=== PATIENT | male | born 1990 | race African-American/Black ===

== ENCOUNTER 2019-01-02 05:35 | Inpatient (IN) | payer SELFPAY ==
[~2019-01-02] VITALS: Ht 170.2 cm; Wt 52.6 kg
--- OUTSIDE RECORDS SUMMARY | 2019-01-02 05:37 | XMS REPORT ---
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 Allergies, Adverse Reactions, Alerts Allergy Name Allergy Type Status Severity Reaction(s) Onset Date Inactive Date Treating Clinician Comments No Known Allergies DA Active U 2018-05-25 00:00:00 No Known Allergies DA Active U 2016-11-08 00:00:00 Medications This patient has no known medications. Encounters Start Date/Time End Date/Time Encounter Type Admission Type Attending Clinicians Care Facility Care Department Encounter ID 2017-08-15 00:00:00 2017-08-15 00:00:00 Outpatient [facility] [id number] 2017-04-20 00:00:00 2017-04-20 00:00:00 Outpatient [facility] [id number] 2017-04-03 00:00:00 2017-04-03 00:00:00 Outpatient [facility] [id number] 2017-01-17 00:00:00 2017-01-17 00:00:00 Outpatient [facility] [id number] 2016-12-08 00:00:00 2016-12-08 00:00:00 Outpatient [facility] [id number] 2016-11-30 12:32:49 2016-11-30 12:32:49 Outpatient [facility] [id number] 2016-11-30 00:00:00 2016-11-30 00:00:00 Outpatient [facility] [id number] 2016-11-25 00:00:00 2016-11-25 00:00:00 Outpatient [facility] [id number] 2016-11-10 00:00:00 2016-11-10 00:00:00 Outpatient [facility] [id number] 2016-11-07 11:31:30 2016-11-07 11:31:30 Outpatient [facility] [id number] 2016-11-07 11:16:47 2016-11-07 11:16:47 Outpatient [facility] [id number] 2016-11-01 00:00:00 2016-11-01 00:00:00 Outpatient [facility] [id number] 2016-10-25 00:00:00 2016-10-25 00:00:00 Outpatient [facility] [id number] 2016-08-30 12:10:40 2016-08-30 12:10:40 Outpatient [facility] [id number]
[2019-01-02] MEDS ORDERED: PANTOPRAZOLE 40 MG 10ML VIAL IV STA (05:44)
[2019-01-02] MEDS ORDERED: SODIUM CHLORIDE 0.9% 1000ML 1,000 ML IV STA ×2 (05:44→07:00)
[2019-01-02] MEDS ORDERED: ACETAMINOPHEN 1000 MG/100 ML IV STA (05:44)
[2019-01-02] MEDS ORDERED: ONDANSETRON HCL INJ 2MG/ML 2ML 2 MG/ML VIAL IV STA (05:44)
[2019-01-02] MEDS ORDERED: ACETAMINOPHEN 1000 MG/100 ML 100 ML IV ONE (06:02)
[2019-01-02] MEDS: CEFTRIAXONE SOD 1 GM/NS 50 ML 50 ML IV SCH (06:16)
[2019-01-02] MEDS: AZITHROMYCIN 500MG/NS 250 ML 250 ML IV SCH (06:26)
--- NOTE | 2019-01-02 06:27 | NUR ---
PT GIVEN URINAL, INST ON NEED FOR UA, VERBALIZED UNDERSTANDING
[2019-01-02 06:29] LABS: BASOPHILS # (AUTO) 0.1 (0.0-0.1); BASOPHILS % 0.5 % (0.0-1.0); EOSINOPHILS # (AUTO) 0.1 (0.0-0.4); EOSINOPHILS % 0.3 % (0.0-6.0); HEMATOCRIT 34.8 % (38.2-49.6); HEMOGLOBIN 12.3 g/dL (14.0-18.0); LYMPHOCYTES # (AUTO) 0.5 (1.0-3.2); LYMPHOCYTES % 2.5 % (18.0-39.1); MEAN CORPUSCULAR HEMOGLOBIN 33.2 pg (28-32); MEAN CORPUSCULAR HGB CONC 35.3 g/dL (31-35); MEAN CORPUSCULAR VOLUME 94.1 fL (81-99); MONOCYTES # (AUTO) 0.7 (0.2-0.8); MONOCYTES % 3.6 % (4.4-11.3); NEUTROPHILS # (AUTO) 17.2 (2.1-6.9); NEUTROPHILS % 91.9 % (38.7-80.0); PLATELET COUNT 167 x10e3/uL (140-360); RED CELL DISTRIBUTION WIDTH 12.9 % (11.7-14.4)
[2019-01-02 06:37] LABS: INR 1.07; PROTHROMBIN TIME 14.4 seconds (11.9-14.5)
[2019-01-02 06:38] LABS: PARTIAL THROMBOPLASTIN TIME 31.5 seconds (23.8-35.5)
[2019-01-02 06:59] LABS: ALANINE AMINOTRANSFERASE 12 IU/L (0-55); ALBUMIN 2.5 g/dL (3.5-5.0); ALBUMIN/GLOBULIN RATIO 0.3 (0.8-2.0); ALKALINE PHOSPHATASE 63 IU/L (40-150); ANION GAP 14.9 mmol/L (8-16); BLOOD UREA NITROGEN 36 mg/dL (7-26); BUN/CREATININE RATIO 15 (6-25); CALCIUM 8.4 mg/dL (8.4-10.2); CARBON DIOXIDE 20 mmol/L (22-29); CHLORIDE 97 mmol/L (98-107); CREATINE KINASE 466 IU/L (30-200); CREATININE, SERUM 2.41 mg/dL (0.72-1.25); EST GLOMERULAR FILTRATION RATE 38 ML/MIN (60-); GLUCOSE 121 mg/dL (74-118)
[2019-01-02] MEDS ORDERED: IPRATROPIUM BROMIDE 0.02% 2.5 ML NEB NEB PRN (07:00)
[2019-01-02] MEDS ORDERED: ALBUTEROL SULF 0.083% NEB SOLN 3 ML NEB NEB PRN (07:00)
[2019-01-02 07:07] LABS: POTASSIUM 2.9 mmol/L (3.5-5.1)
[2019-01-02 07:08] LABS: SODIUM 129 mmol/L (136-145)
--- NOTE | 2019-01-02 07:08 | NUR ---
ABNORMAL LAB RESULTS (K, MAG, NA) REPORTED TO DR. ALBERTS
--- NOTE | 2019-01-02 07:10 | Diagnostic Imaging Report ---
Examination: Single AP view of the chest. COMPARISON: None. INDICATION: Shortness of breath, cough and congestion, fever, HIV IMPRESSION: 1. Lines and Tubes: None 2. Lungs are well-inflated. Wedge-shaped consolidation in the lateral left mid lung, likely representing pneumonia given the clinical setting. 3. Cardiomediastinal silhouette is normal. Pulmonary vasculature is normal. 4. No acute bony abnormalities. Signed by: Dr. Naveen Evans M.D. on 01/02/2019 7:07 AM
[2019-01-02] MEDS ORDERED: VANCOMYCIN 1GM/NS 250 ML 250 ML IV ONE (07:15)
[2019-01-02] MEDS ORDERED: MAGNESIUM SULFATE 2GM/50ML 50 ML IV ONE (07:15)
[2019-01-02] MEDS ORDERED: KCL 40MEQ/0.9% SOD CHL 1,000 ML IV ONE (07:40)
[2019-01-02 07:51] LABS: LYMPHOCYTES % (MANUAL) 3 % (19-48); MONOCYTES % (MANUAL) 4 % (3.4-9.0); NEUTROPHILS % (MANUAL) 93 % (40-74); PLATELET ESTIMATE MODERATELY DECREASED
[2019-01-02 07:52] LABS: PLATELET MORPHOLOGY COMMENT FEW LARGE; RBC MORPHOLOGY COMMENT NORMAL
--- NOTE | 2019-01-02 08:43 | NUR ---
RECEIVED REPORT FROM LUIS Mclean TEMPetar 100.1 PATIENT K 2.9, PLACED HIM ON EXECUTIVE PERSONAL ASSISTANT STARTED KCL 40 MEQ/1 LITER @ 250 CC/HR
--- NOTE | 2019-01-02 09:17 | NUR ---
PATIENT EVALUATED BY DR. LEARY AND DR. LEACH IN THE EMERGENCY ROOM.
[2019-01-02 09:26] LABS: BILIRUBIN,URINE NEGATIVE (NEGATIVE); CLARITY,URINE CLOUDY (CLEAR); COLOR,URINE YELLOW (YELLOW); KETONES,URINE NEGATIVE (NEGATIVE); LEUKOCYTE ESTERASE ,URINE NEGATIVE (NEGATIVE); NITRITE,URINE NEGATIVE (NEGATIVE); URINE UROBILINOGEN 0.2 mg/dL (0.2 - 1)
--- NOTE | 2019-01-02 09:30 | NUR ---
DR. LEACH CALLED ON PHONE. SHE ASKED ABOUT THE LOW POTTASIUM AND MAGNESIUM. RELAYED TO HER THAT THEY ARE BEING TREATED BY E.R. DOCTOR AND LET HER KNOW WHAT MEDICATIONS ARE BEING GIVEN. SHE STATED PATIENT IS GOING TO NEED A NEPHROLOGY CONSULT. I ASKED IF SHE WOULD LIKE ME PUT THAT ORDER IN AND SHE STATED, "NO, I WILL DO IT".
[2019-01-02 09:38] LABS: AMPHETAMINES SCREEN,URINE NEGATIVE (NEGATIVE); BENZODIAZEPINES SCREEN,URINE NEGATIVE (NEGATIVE); PHENCYCLIDINE SCREEN,URINE NEGATIVE (NEGATIVE)
[2019-01-02 09:45] LABS: PROTEIN,URINE DIPSTICK 3+ (NEGATIVE)
--- NOTE | 2019-01-02 09:49 | NUR ---
PATIENT AMBULATED TO BATHROOM. BECAME SHORT OF BREATH. 93%, PLACED ON 3L/NC. INCREASED TO 96%. TACHYCARDIC 112, RR 32, PLACED BACK IN BED. TEMP 101
[2019-01-02 09:52] LABS: BACTERIA,URINE RARE /HPF; EPITHELIAL CELLS,URINE FEW /LPF
[2019-01-02] MEDS: ACETAMINOPHEN 1000 MG/100 ML IV PRN (10:38)
--- NOTE | 2019-01-02 10:47 | Diagnostic Imaging Report ---
CT of the chest, with contrast. History: Pneumonia, concern for empyema. Comparison: Chest radiograph from earlier 01/02/2019. Technique: Multidetector CT scanning of the chest was performed from the level of the apices to the upper abdomen after intravenous administration of contrast. Coronal and sagittal multiplanar reformations were obtained. RADIATION DOSE: Total DLP: 265.22 mGy*cm Dose modulation, iterative reconstruction, and/or weight based adjustment of the mA/kV was utilized to reduce the radiation dose to as low as reasonably achievable. Findings: The thyroid and remaining visualized structures within the base of the neck demonstrate no significant abnormalities. The thoracic aorta is normal course and caliber. The heart is not enlarged. No abnormal pericardial fluid is present. Normal-sized mediastinal and axillary lymph nodes are noted. There is mild prominence of left hilar lymph nodes which may be reactive. There is no abnormal axillary or mediastinal lymph node enlargement. The trachea is patent. Mild bilateral paraseptal cystic change noted. There is a large area of consolidation identified involving the left upper lobe and lingula with air bronchograms. Additionally, there are innumerable subcentimeter groundglass opacities identified within the left upper and lower lobes. The right lung is clear. There is no evidence for pneumothorax, significant pleural effusion, or organized fluid collection to suggest empyema. Limited views of the upper abdomen demonstrate no significant abnormalities. The osseous structures demonstrate no evidence for acute fracture or destructive process. The extrathoracic soft tissues are unremarkable. IMPRESSION: 1. Consolidation of the left upper lobe/lingula with additional subcentimeter groundglass opacities identified throughout the left lung. Findings are concerning for a infectious process such as pneumonia. Follow-up examination after treatment is recommended to ensure resolution. 2. No evidence for significant pleural effusion, empyema, or drainable fluid collection. Signed by: Dr. Michele Bahena MD on 01/02/2019 10:43 AM
--- NOTE | 2019-01-02 11:31 | History and Physical ---
HISTORY OF PRESENT ILLNESS: Mr. Duron is a 28-year-old man with history of HIV, who need medication for that, came to the emergency room complaining of few days history of fever, vomiting, diarrhea, as well as he later on developed left-sided chest pain, cough, and phlegm, so he decided to come to the emergency room. PAST MEDICAL HISTORY: He is HIV positive. ALLERGIES: NO KNOWN DRUG ALLERGIES. SOCIAL HISTORY: He does not smoke, but he drinks alcohol. PAST SURGICAL HISTORY: He denies. PHYSICAL EXAMINATION: GENERAL: He is awake and alert. VITAL SIGNS: Temperature is a 100.1, blood pressure 127/82. HEART: Regular rate. LUNGS: The left side you can hear some crackles. ABDOMEN: Soft. LABORATORY DATA: On the blood work, white count is 18.70, hemoglobin is 12.3, hematocrit is 34.8, potassium is 2.9, creatinine is 2.41, magnesium 1.0. Cultures are all pending. Chest x-ray showed wedge shaped consolidation in the lateral left mid lung, likely representing pneumonia. ASSESSMENT AND PLAN: 1. Left middle pneumonia. 2. Human immunodeficiency virus positive. 3. Leukocytosis. 4. Renal failure. 5. Hypokalemia. 6. Hypomagnesemia. PLAN: Admit the patient to the hospital. Infectious Disease consult with Dr. Weiner. Pulmonary consult with Dr. Pratt. Continue IV antibiotics. Replace magnesium and potassium. We are going to also get a Nephrology consult with Dr. Juárez. The overall prognosis of the patient is guarded. All this was discussed with the patient. All questions were answered to satisfaction. MD JACKIE Trotter/FATUMA /[id number]
[2019-01-02] MEDS ORDERED: KCL 20MEQ/.9 SOD CHL 1,000 ML IV ONE (11:40)
--- NOTE | 2019-01-02 12:15 | NUR ---
ATTEMPTED 2ND REPORT, NURSE IN ROOM GIVING MEDS
[2019-01-02 14:00] VITALS: BP 100/71
[2019-01-02 14:05] VITALS: BP 100/71
--- NOTE | 2019-01-02 14:31 | Consultation ---
DATE OF CONSULTATION: Pulmonary Consultation Patient followed at [facility], admitted to Dr. Sierra. HISTORY OF PRESENT ILLNESS: Charming, but unfortunate 28-year-old gentleman admitted with fever, cough productive yellow sputum, vomiting, unable to eat for several days, ill for 4 days. History of HIV positive, [facility]. History of Treacher Rinaldi syndrome, craniofacial congenital abnormality. ALLERGIES: NO KNOWN ALLERGIES. PAST SURGICAL HISTORY: No surgical history. SOCIAL HISTORY: Drinks on weekends. Works at [employer]. FAMILY HISTORY: Positive for hypertension and diabetes. PHYSICAL EXAMINATION: VITAL SIGNS: Temperature 103, pulse 109 and regular, and blood pressure 127/82. GENERAL: He is a well-developed black male. HEENT: There are some ocular and cranial abnormalities noted. Hearing aid. NECK: Trachea midline. LUNGS: Diminished breath sounds with inability to take a deep breath HEART: Regular rhythm. ABDOMEN: Nontender. EXTREMITIES: Nonedematous. IMPRESSION: Human immunodeficiency virus/acquired immune deficiency syndrome, pleurisy, pneumonia, rule out empyema. Continue antibiotics. Resume HIV therapy as per ID service. Sputum studies, blood culture, CT of the chest, possible thoracentesis with chest tube. Thank you for this kind referral. MD ANATOLY Cam/MODL /[id number]
[2019-01-02 14:33] VITALS: BP 100/71
[2019-01-02] MEDS ORDERED: biktarvy (14:36)
[2019-01-02] MEDS ORDERED: IOPAMIDOL 370 MG/ML 200 ML INFUS..BTL INJ ONE (14:47)
[2019-01-02] MEDS ORDERED: SODIUM CHLORIDE 0.9% 50ML 50 ML ONE (14:47)
[2019-01-02 16:02] VITALS: BP 130/58
[2019-01-02 16:13] LABS: CREATINE KINASE MB 0.7 ng/mL (0-5.0)
[2019-01-02] MEDS: ALBUTEROL/IPRATROPIUM 3 ML NEB NEB SCH ×2 (16:43→18:55)
--- NOTE | 2019-01-02 17:17 | Diagnostic Imaging Report ---
EXAM: US RENAL RETROPERITONEAL COMP DATE: 01/02/2019 12:00 AM INDICATION: Acute kidney injury COMPARISON: None FINDINGS: The right kidney is normal in size measuring 10.0 x 4.5 x 4.5 cm with cortical thickness of 1.1 cm. Cortical echogenicity appears mildly increased. There is no evidence for solid renal mass, hydronephrosis, or shadowing calculi. The left kidney is normal in size measuring 10.4 x 5.9 x 4.9 cm with cortical thickness of 1.6 cm. Cortical echogenicity appears mildly increased. There is no evidence for solid renal mass, hydronephrosis, or shadowing calculi. The partially distended urinary bladder appears unremarkable. Prevoid volume is 116 cc. A right ureteral jet is noted. The left ureteral jet was appreciated during the examination. IMPRESSION: Bilateral increased renal cortical echogenicity which is nonspecific but can be seen in the setting of medical renal disease. Otherwise, unremarkable renal ultrasound examination. Signed by: Dr. Michele Bahena MD on 01/02/2019 5:13 PM
--- NOTE | 2019-01-02 19:30 | NUR ---
Patient received lying in bed. AAO x 3. Patient had no complaints of pain. Respirations even and non-labored on 3L NC. IVF infusing at 125 cc/hr. Safety measures implemented. Patient instructed to call for assistance when needed. Call light within reach.
[2019-01-02 20:00] VITALS: BP 103/57
[2019-01-02 20:40] LABS: CREATININE,URINE RANDOM 203.12 mg/dL (63-166)
[2019-01-02 21:10] VITALS: BP 103/57
[2019-01-02 21:13] LABS: TOTAL PROTEIN, URINE 252.2 mg/dL (1-14)
--- NOTE | 2019-01-02 21:34 | NUR ---
Blood specimen sent to lab for analysis of cardiac enzymes.
[2019-01-02] MEDS: SODIUM CHLORIDE 0.9% 1000ML 1,000 ML IV SCH (21:35)
[2019-01-02 21:58] LABS: CREATINE KINASE 325 IU/L (30-200)
--- NOTE | 2019-01-02 23:15 | NUR ---
scada technician called with results of blood culture (aerobic and anaerobic)---- Gram positive rods. Dr. Weiner paged. Awaiting call back.
--- NOTE | 2019-01-02 23:49 | Consultation ---
DATE OF CONSULTATION: 01/02/2019 REASON FOR CONSULTATION: Acute kidney injury and hypokalemia. HISTORY OF PRESENT ILLNESS: Mr. Oliverio Ledbetter is a 28-year-old gentleman with a history of Treacher Rinaldi Syndrome as well as HIV, and chronic kidney disease, presented with 4 days history of nausea, vomiting, and diarrhea. Renal consulted for management of acute kidney injury. His sisters by the bedside. He denies prior history of diabetes or hypertension. Has labs showing sodium 129, potassium 2.9, bicarbonate 20, creatinine 2.4, and hemoglobin 12.3. He denies any drug allergies. Currently on albuterol and Atrovent nebulizer. He is also on ondansetron p.r.n. He received a couple of boluses of IV fluids. He is on ceftriaxone IV, potassium replaced. He is on Protonix 40 mg IV, and Zofran p.r.n. SOCIAL HISTORY: Does not smoke or drink. FAMILY HISTORY: Significant for hypertension. PHYSICAL EXAMINATION: GENERAL: Awake, alert, and oriented, lying supine, in no apparent distress. VITAL SIGNS: Blood pressure 107/72, pulse rate 103, afebrile, respiratory rate 17. HEAD AND NECK: Scalp and facial deformities noted. The patient is wearing hearing aid. Otherwise neck supple. LUNGS: Clear. No rales or rhonchi. HEART: S1 and S2 audible. ABDOMEN: Otherwise soft and nontender. No apparent visceromegaly and lower extremity no edema. IMPRESSION: Dehydration, acute on chronic kidney failure, hypokalemia, and hyponatremia. PLAN: On starting of potassium has been replaced. I will start IV normal saline and continue with IV hydration. Volume replacement, kidney ultrasound, urine protein creatinine ratio ordered, multiple other comorbidities including HIV, Infectious Disease on the case. Louann Juárez MD SAK/MODL /[id number]
[2019-01-03] VITALS (8 sets, daily range): BP systolic 93–116; BP diastolic 53–73
--- NOTE | 2019-01-03 00:23 | Consultation ---
DATE OF CONSULTATION: REASON FOR CONSULTATION: HIV, pneumonia. RECOMMENDATIONS: Antibiotic. HISTORY OF PRESENT ILLNESS: This patient, who is a 28-year-old male, who have a history of HIV, history of Treacher Rinaldi syndrome. The patient comes in with shortness of breath and cough, fever and chills, chest pain. The patient has HIV, since the age 20, on anti-retroviral medication. The patient does not know what he takes, but he said Triumeq he thinks. The patient does not know what his CD4 cell count, but he thinks good. LABORATORY DATA: Reviewed. His white count 18.7, hemoglobin 12. Sodium 129, potassium 2.9. His creatinine is 2.4. His CT of the chest showed consolidation, left upper lobe. No evidence for effusion. PHYSICAL EXAMINATION: GENERAL: He is currently alert, comfortable. VITAL SIGNS: Stable, currently afebrile. HEENT: Not icteric. NECK: Supple. CHEST: Rhonchi bilateral, mainly on the left. HEART: S1, S2. No S3, S4, or murmur. ABDOMEN: Soft. Bowel sounds present. EXTREMITIES: No edema. SKIN: No rash. IMPRESSION: 1. Pneumonia. The patient with human immunodeficiency virus. I am not so sure if he has acquired immune deficiency syndrome. He seems he is taking his medication. 2. History of Treacher Rinaldi syndrome. Agree with Rocephin. 3. Acute kidney injury on chronic kidney disease. Agree with blood cultures, urine cultures. Agree with Rocephin, azithromycin. Continue his anti-retroviral medication. Follow up chest x-ray to total resolution. We will follow with you. MD RADHA Kenney/FATUMA /[id number]
--- NOTE | 2019-01-03 00:39 | NUR ---
Dr. Weiner called back with a new order for administration of 1 g Vancomycin Q24H.
[2019-01-03] MEDS ORDERED: VANCOMYCIN 1GM/NS 250 ML 250 ML IV SCH (00:45)
[2019-01-03] MEDS: SODIUM CHLORIDE 0.9% 1000ML 1,000 ML IV SCH ×2 (03:00→12:00)
[2019-01-03] MEDS: ACETAMINOPHEN 1000 MG/100 ML IV PRN (03:01)
[2019-01-03] MEDS: ALBUTEROL/IPRATROPIUM 3 ML NEB NEB SCH ×3 (03:12→14:15)
[2019-01-03 05:39] LABS: BASOPHILS % 0.3 % (0.0-1.0); EOSINOPHILS % 0.1 % (0.0-6.0); HEMATOCRIT 27.7 % (38.2-49.6); HEMOGLOBIN 9.7 g/dL (14.0-18.0); LYMPHOCYTES # (AUTO) 0.5 (1.0-3.2); LYMPHOCYTES % 5.5 % (18.0-39.1); MEAN CORPUSCULAR HEMOGLOBIN 33.1 pg (28-32); MEAN CORPUSCULAR VOLUME 94.5 fL (81-99); MONOCYTES # (AUTO) 0.6 (0.2-0.8); MONOCYTES % 5.8 % (4.4-11.3); NEUTROPHILS # (AUTO) 8.3 (2.1-6.9); NEUTROPHILS % 87.7 % (38.7-80.0); PLATELET COUNT 164 x10e3/uL (140-360); RED BLOOD COUNT 2.93 x10e6/uL (4.3-5.7); RED CELL DISTRIBUTION WIDTH 13.1 % (11.7-14.4)
[2019-01-03] MEDS: CEFTRIAXONE SOD 1 GM/NS 50 ML 50 ML IV SCH (05:54)
[2019-01-03 06:10] LABS: ALANINE AMINOTRANSFERASE 10 IU/L (0-55); ALBUMIN 1.7 g/dL (3.5-5.0); ALBUMIN/GLOBULIN RATIO 0.3 (0.8-2.0); ALKALINE PHOSPHATASE 36 IU/L (40-150); ANION GAP 10.6 mmol/L (8-16); BLOOD UREA NITROGEN 26 mg/dL (7-26); BUN/CREATININE RATIO 20 (6-25); CARBON DIOXIDE 17 mmol/L (22-29); CHLORIDE 106 mmol/L (98-107); CREATININE, SERUM 1.28 mg/dL (0.72-1.25); EST GLOMERULAR FILTRATION RATE > 60 ML/MIN (60-); GLUCOSE 105 mg/dL (74-118); POTASSIUM 3.6 mmol/L (3.5-5.1); SODIUM 130 mmol/L (136-145)
--- NOTE | 2019-01-03 06:15 | NUR ---
windows server support technician called stating previous blood culture results reported as "gram positive rods" results was actually "gram negative rods". Dr. Weiner paged. Awaiting call back.
--- NOTE | 2019-01-03 07:00 | NUR ---
Walking rounds done. Patient resting comfortably. Shift report given to oncoming nurse.
--- NOTE | 2019-01-03 07:10 | NUR ---
RCD PT AT BED PT IS ALERT AND ORIENTED PT RESTING ON BEDIV PATENT BY SALINE FLUSH BED LOW AND LOCKED CALL LIGHT IN REACH
[2019-01-03] MEDS: PANTOPRAZOLE SOD 40 MG TABEC PO SCH (07:30)
[2019-01-03] MEDS: AZITHROMYCIN 500MG/NS 250 ML 250 ML IV SCH (09:00)
[2019-01-03 10:55] LABS: LYMPHOCYTES % (MANUAL) 7 % (19-48); MONOCYTES % (MANUAL) 5 % (3.4-9.0); NEUTROPHILS % (MANUAL) 88 % (40-74); PLATELET ESTIMATE MODERATELY DECREASED; RBC MORPHOLOGY COMMENT NORMAL
--- NOTE | 2019-01-03 11:16 | Progress Note ---
DATE: 01/03/2019 SUBJECTIVE: Mr. Duron is a 28-year-old man with Treacher Rinaldi syndrome, history of HIV, came to the emergency room complaining of fever, vomiting, diarrhea, left-sided chest pain, cough, and phlegm. He was found to have pneumonia as well as acute on chronic renal failure. PHYSICAL EXAMINATION: GENERAL: Today, he is awake and alert. He is feeling little better. He states he is still short of breath when he walks to the restroom. VITAL SIGNS: He had 102.4 fever this morning, blood pressure is 93/53. HEART: Regular rate. LUNGS: Poor inspiratory effort. ABDOMEN: Soft. LABORATORY DATA: On the blood work, white count is 9.46, hemoglobin is 9.7, hematocrit 27.7, creatinine is down to 1.28, so it is improving. Sodium is 130. Drug test came back positive for cocaine. Immunology is pending. Cultures are pending. Renal ultrasound shows bilateral increased renal cortical echogenicity, which is nonspecific, but can be seen in the setting of medical renal disease. Chest CT shows: 1. Consolidation of left upper lobe lingula with additional symmetric ground-glass opacities identified throughout the left lung, findings and concerning for infectious process such as pneumonia. 2. No evidence of pleural effusion, empyema, or drainable fluid collection. ASSESSMENT: 1. Left upper lobe pneumonia. 2. Human immunodeficiency virus positive. 3. Leukocytosis. 4. Acute on chronic renal failure. 5. Hypokalemia, resolved. 6. Hypomagnesemia. 7. Treacher Rinaldi syndrome. 8. Positive screening for cocaine. PLAN: At present time is to continue IV antibiotics. Continue to monitor electrolytes. Continue to monitor white count, hemoglobin, and hematocrit. We are awaiting for sputum culture, blood culture, and urine culture. All this was discussed with the patient. All questions were answered to satisfaction. MD JACKIE Trotter/MODL /[id number]
[2019-01-03] MEDS ORDERED: CEFEPIME HCL 1 GM VIAL IV SCH (11:30)
[2019-01-03] MEDS: CEFEPIME 1GM/NS 0.9% 50 ML 50 ML IV SCH ×2 (12:30→21:10)
[2019-01-03] MEDS: SODIUM BICARBONATE 650 MG TAB PO SCH ×2 (15:00→21:10)
--- NOTE | 2019-01-03 17:30 | NUR ---
PAGED DR LEACH TO NOTIFY THE FEVER AND GET SOME ORDERS
--- NOTE | 2019-01-03 18:34 | NUR ---
DR LEACH RETURNED THE CALL AND GOT NEW ORDERS
[2019-01-03] MEDS: ACETAMINOPHEN 325 MG TAB PO PRN (18:43)
--- NOTE | 2019-01-03 18:43 | NUR ---
PT RESTING ON BED BED SIDE REPORT GIVEN TO ONCOMING NURSE
[2019-01-04] VITALS (8 sets, daily range): BP systolic 98–119; BP diastolic 57–74
[2019-01-04] MEDS: ACETAMINOPHEN 325 MG TAB PO PRN (04:15)
[2019-01-04] MEDS: ALBUTEROL/IPRATROPIUM 3 ML NEB NEB SCH ×3 (06:30→19:55)
--- NOTE | 2019-01-04 07:10 | NUR ---
RCD PT AT BED PT IS ALERT AND ORIENTED ASSESSMENT DONE PT RESTING ON BED NO SIGNS OF ANY DISTRESS NOTED IV PATENT BY SALINE FLUSH BED LOW AND LOCKED CALL LIGHT IN REACH
[2019-01-04] MEDS: PANTOPRAZOLE SOD 40 MG TABEC PO SCH (07:30)
[2019-01-04] MEDS: CEFEPIME 1GM/NS 0.9% 50 ML 50 ML IV SCH (08:42)
[2019-01-04] MEDS: SODIUM BICARBONATE 650 MG TAB PO SCH ×3 (08:42→20:47)
--- NOTE | 2019-01-04 11:43 | Progress Note ---
DATE: 01/04/2019 SUBJECTIVE: Mr. Duron is a 28-year-old male with history of Treacher Rinaldi syndrome and history of HIV. He came to the emergency room complaining of fever, vomiting, diarrhea, left-sided chest pain, cough and phlegm. He was found to have pneumonia and started on IV antibiotics. PHYSICAL EXAMINATION: GENERAL: Today, he is awake and alert. He is feeling better. VITAL SIGNS: Temperature is 101.3 and blood pressure is 119/73. HEART: Regular rate. LUNGS: Poor inspiratory effort. ABDOMEN: Soft. LABORATORY DATA: On the blood work, potassium 3.6, creatinine 1.28, and glucose is 105. White count is 9.46, hemoglobin 9.7, and hematocrit 27.7. On the blood work, he is growing gram-negative bacillus. Sputum is growing Klebsiella pneumoniae and Staph aureus. Urine culture is still pending. ASSESSMENT AND PLAN: 1. Left upper lobe pneumonia. 2. Gram-negative bacteremia. 3. Leukocytosis. 4. Human immunodeficiency virus. 5. Acute on chronic renal failure. 6. Treacher Rinaldi syndrome. 7. Screening positive for cocaine. At present time is to continue to monitor electrolytes and white count and continue IV antibiotics. Continue until we get the final results on the cultures. He is on cefepime right now as an IV antibiotic. All this was discussed extensively with the patient at bedside. All questions were answered to satisfaction. MD JACKIE Trotter/FATUMA /[id number]
--- NOTE | 2019-01-04 12:10 | NUR ---
A/C TO RADIOLOGY PAGED DR LEARY TO CLARIFY THE XRAY CHEST
[2019-01-04] MEDS ORDERED: IOPAMIDOL 370 MG/ML 200 ML INFUS..BTL INJ ONE (13:30)
[2019-01-04] MEDS: CEFAZOLIN SOD 1 GM/NS 50ML 50 ML IV SCH ×2 (14:00→22:11)
--- NOTE | 2019-01-04 14:22 | Diagnostic Imaging Report ---
CT of the chest, abdomen and pelvis History: Bacteremia Comparison: Chest CT dated 01/02/2019. Technique: Multidetector CT scanning of the chest, abdomen, and pelvis was performed from the level of the thoracic inlet to the inferior pubic ramus, with intravenous administration of non-ionic contrast. DOSE REDUCTION: The examination was performed according to departmental dose-optimization program which includes automated exposure control, adjustment of the mA and/or kV according to patient size and/or use of iterative reconstruction technique. Discussion: Chest findings: The visualized portions of the thyroid gland are unremarkable. There is no axillary, mediastinal, or hilar lymphadenopathy. The heart is within normal limits of size. There is no pericardial effusion. The thoracic aorta is of normal course and caliber. The trachea and central airways are patent. There is redemonstration of consolidation involving the left upper lobe which is not significantly changed prior examination. There is now more confluent consolidation in the left lower lobe which likely reflect worsening multifocal pneumonia. Right lower lobe atelectasis is present. There are trace bilateral pleural effusions. There is no pneumothorax Abdomen and pelvis findings: The liver is enlarged measuring 20 cm in length along the right midclavicular line. No focal hepatic lesions are identified. The gallbladder is contracted. There is no evidence of intrahepatic or extrahepatic ductal dilatation. Spleen is within normal limits. Bilateral adrenal glands are unremarkable. The kidneys are normal in size and enhance symmetrically. There is no hydroureteronephrosis bilaterally. There are no renal stones. Stomach, small, and large bowel are nondistended. There is no evidence of obstruction. No bowel wall thickening is appreciated. There are no signs of appendicitis. The abdominal aorta is of normal course and caliber. There is no free intraperitoneal air. The urinary bladder is within normal limits. There are no acute osseous abnormalities IMPRESSION: 1. Worsening airspace consolidation in the left lower lobe. No change in left upper lobe consolidation. 2. Trace bilateral pleural effusions. 3. Hepatomegaly Signed by: Cristian Dumont MD on 01/04/2019 2:18 PM
--- NOTE | 2019-01-04 17:00 | Diagnostic Imaging Report ---
Chest, PA and lateral. History: Pneumonia. Comparison: CT chest dated 01/04/2019, chest radiograph dated 01/02/2019. Impression: The heart is within normal limits of size. There is redemonstration of a dense consolidative opacity in the left upper lobe. Left basilar opacity is also present which partially obscures the left hemidiaphragm. The right lung is grossly clear. There are trace bilateral pleural effusions. There is no pneumothorax. Signed by: Cristian Dumont MD on 01/04/2019 4:57 PM
--- NOTE | 2019-01-04 18:52 | NUR ---
Nutrition Screen Note RD Recommendation for Physician: The patient meets criteria for MODERATE protein-calorie malnutrition. -Rec regular diet with double protein portions as medically appropriate Plan of Care: RD following, monitoring for tolerance and adequacy Nutrition reason for involvement: Nutrition Risk Trigger MST Primary Diagnose(s): 1. Left upper lobe pneumonia. 2. Gram-negative bacteremia. 3. Leukocytosis. PMH: +HIV Ht: 67in Wt: 111lb BMI: 17.5kg/m2 IBW: 148lb +/- 10% RD Assessment: (01/04) Chart reviewed. Labs and meds reviewed. 28yo M, who was admitted for PNA. Visited pt in the room. Pt appeared to be thin with moderate muscle/ fat loss. Per mother, pt was not eating for over 4-5 days [employer] OUT [employer]. Appetite has improved since admission. PCT recorded 100% meal intake. No GI complains reported. Pt denied any chewing or swallowing difficulty. Pt reported of 7-9lbs weight loss in the last couple months. His UBW ~120lbs. Discussed the importance of adequate calorie and high protein diet at home due to noted muscle/ fat loss with hx of HIV. Pt has no other question at this time. Current Diet: regular diet Malnutrition Evaluation (01/04/2019) The patient meets criteria for MODERATE protein-calorie malnutrition. Energy intake: <50% of estimated energy requirements for >5 days, [employer] WORKER Weight loss: 7.5% in 3 months (Acute) Fat loss: Moderate clavicle protrusion Muscle loss: Moderate protrusion of acromion process Supporting Evidence: Fluid accumulation: None Functional Status: no changes Diet Education Needs Assessment: Diet education not indicated. Nutrition Care Level: mod Signed: Karyn Hill MS, RD, LD
--- NOTE | 2019-01-04 19:02 | NUR ---
PT RESTING ON BED BED SIDE REPORT GIVEN TO ONCOMING NURSE
[2019-01-05] VITALS (7 sets, daily range): BP systolic 112–145; BP diastolic 56–83
[2019-01-05] MEDS: ACETAMINOPHEN 325 MG TAB PO PRN (00:40)
[2019-01-05] MEDS: ALBUTEROL/IPRATROPIUM 3 ML NEB NEB SCH ×4 (01:10→20:20)
[2019-01-05] MEDS: CEFAZOLIN SOD 1 GM/NS 50ML 50 ML IV SCH (06:11)
--- NOTE | 2019-01-05 06:56 | NUR ---
BEDSIDE SHIFT REPORT GIVEN TO ONCOMING NURSE.PT RESTING IN BED WITH NO S/S OF DISTRESS.
--- NOTE | 2019-01-05 07:00 | NUR ---
RCD PT AT BED PT IS ALERT AND ORIENTED PT RESTING ON BEDIV PATENT BY SALINE FLUSH BED LOW AND LOCKED CALL LIGHT IN REACH
[2019-01-05] MEDS: PANTOPRAZOLE SOD 40 MG TABEC PO SCH (07:30)
[2019-01-05 08:05] LABS: ANION GAP 9.4 mmol/L (8-16); BLOOD UREA NITROGEN 12 mg/dL (7-26); BUN/CREATININE RATIO 11 (6-25); CALCIUM 8.3 mg/dL (8.4-10.2); CARBON DIOXIDE 27 mmol/L (22-29); CHLORIDE 103 mmol/L (98-107); CREATININE, SERUM 1.05 mg/dL (0.72-1.25); EST GLOMERULAR FILTRATION RATE > 60 ML/MIN (60-); GLUCOSE 97 mg/dL (74-118); POTASSIUM 3.4 mmol/L (3.5-5.1); SODIUM 136 mmol/L (136-145)
[2019-01-05] MEDS: SODIUM BICARBONATE 650 MG TAB PO SCH ×3 (09:00→20:33)
[2019-01-05] MEDS: PIPER-TAZ 3.375 GM 50 ML IV SCH ×2 (14:00→21:50)
[2019-01-05] MEDS ORDERED: POTASSIUM CHLORIDE 10MEQ EA PO NR (14:30)
--- NOTE | 2019-01-05 19:12 | NUR ---
PT RESTING ON BED BED SIDE REPORT GIVEN TO ONCOMING NURSE
[2019-01-06 00:25] VITALS: BP 140/93
[2019-01-06] MEDS: ALBUTEROL/IPRATROPIUM 3 ML NEB NEB SCH ×4 (01:20→20:45)
[2019-01-06 04:00] VITALS: BP 137/85
[2019-01-06] MEDS: PIPER-TAZ 3.375 GM 50 ML IV SCH ×3 (05:50→21:50)
[2019-01-06 06:31] LABS: BASOPHILS % 0.4 % (0.0-1.0); EOSINOPHILS # (AUTO) 0.1 (0.0-0.4); EOSINOPHILS % 1.7 % (0.0-6.0); HEMATOCRIT 27.2 % (38.2-49.6); LYMPHOCYTES % 13.2 % (18.0-39.1); MEAN CORPUSCULAR HEMOGLOBIN 32.1 pg (28-32); MEAN CORPUSCULAR HGB CONC 33.1 g/dL (31-35); MEAN CORPUSCULAR VOLUME 97.1 fL (81-99); MONOCYTES % 14.2 % (4.4-11.3); NEUTROPHILS # (AUTO) 4.9 (2.1-6.9); PLATELET COUNT 315 x10e3/uL (140-360); RED CELL DISTRIBUTION WIDTH 13.4 % (11.7-14.4)
[2019-01-06 06:51] LABS: ALANINE AMINOTRANSFERASE 26 IU/L (0-55); ALBUMIN 1.9 g/dL (3.5-5.0); ALBUMIN/GLOBULIN RATIO 0.4 (0.8-2.0); ALKALINE PHOSPHATASE 61 IU/L (40-150); ANION GAP 10.4 mmol/L (8-16); BLOOD UREA NITROGEN 15 mg/dL (7-26); BUN/CREATININE RATIO 17 (6-25); CALCIUM 8.4 mg/dL (8.4-10.2); CARBON DIOXIDE 26 mmol/L (22-29); CHLORIDE 103 mmol/L (98-107); CREATININE, SERUM 0.89 mg/dL (0.72-1.25); EST GLOMERULAR FILTRATION RATE > 60 ML/MIN (60-); GLUCOSE 103 mg/dL (74-118); POTASSIUM 3.4 mmol/L (3.5-5.1); SODIUM 136 mmol/L (136-145)
[2019-01-06 07:15] LABS: MAGNESIUM 1.4 MG/DL (1.3-2.1); PHOSPHORUS 2.4 MG/DL (2.3-4.7)
--- NOTE | 2019-01-06 07:40 | NUR ---
Report rec'd from Antonio Dorsey RN and patient is awake and oriented and is awaiting determination of discharge.
--- NOTE | 2019-01-06 07:41 | NUR ---
REPORT GIVEN TO ONCOMING NURSE.PT RESTING IN BED WITH NO S/S OF DISTRESS.
[2019-01-06 08:00] VITALS: BP 123/73
[2019-01-06 08:27] LABS: LARGE PLATELETS FEW; PLATELET ESTIMATE ADEQUATE; PLATELET MORPHOLOGY COMMENT FEW LARGE
[2019-01-06 08:28] LABS: RBC MORPHOLOGY COMMENT NORMAL
[2019-01-06] MEDS: SODIUM BICARBONATE 650 MG TAB PO SCH ×3 (08:37→20:35)
[2019-01-06] MEDS: PANTOPRAZOLE SOD 40 MG TABEC PO SCH (08:37)
[2019-01-06 12:00] VITALS: BP 116/63
--- NOTE | 2019-01-06 13:56 | NUR ---
The patient is not complaining of any discomfort and is continuing IV antibiotic, Zosyn, and will determine when he is going to be discharged tomorrow.
[2019-01-06] MEDS ORDERED: POTASSIUM CHLORIDE 10MEQ EA PO NR (14:15)
[2019-01-06 16:00] VITALS: BP 116/58
--- NOTE | 2019-01-06 17:43 | NUR ---
This patient is pleasant and cooperative. He has no complaints at all today. Will continue to wait for discharge, may discharge tomorrow if ok with all physicians.
[2019-01-06 19:18] VITALS: BP 109/63
[2019-01-07] VITALS (8 sets, daily range): BP systolic 119–143; BP diastolic 68–87
[2019-01-07] MEDS: ALBUTEROL/IPRATROPIUM 3 ML NEB NEB SCH ×4 (01:20→19:35)
[2019-01-07 05:40] LABS: BASOPHILS % 0.5 % (0.0-1.0); EOSINOPHILS # (AUTO) 0.1 (0.0-0.4); EOSINOPHILS % 0.7 % (0.0-6.0); HEMATOCRIT 28.2 % (38.2-49.6); HEMOGLOBIN 9.6 g/dL (14.0-18.0); LYMPHOCYTES % 11.6 % (18.0-39.1); MEAN CORPUSCULAR HEMOGLOBIN 32.5 pg (28-32); MEAN CORPUSCULAR VOLUME 95.6 fL (81-99); MONOCYTES # (AUTO) 0.8 (0.2-0.8); MONOCYTES % 9.3 % (4.4-11.3); NEUTROPHILS # (AUTO) 6.4 (2.1-6.9); NEUTROPHILS % 75.4 % (38.7-80.0); PLATELET COUNT 497 x10e3/uL (140-360); RED BLOOD COUNT 2.95 x10e6/uL (4.3-5.7); RED CELL DISTRIBUTION WIDTH 13.2 % (11.7-14.4)
[2019-01-07 05:59] LABS: BLOOD UREA NITROGEN 12 mg/dL (7-26); BUN/CREATININE RATIO 13 (6-25); CALCIUM 8.6 mg/dL (8.4-10.2); CARBON DIOXIDE 28 mmol/L (22-29); CHLORIDE 100 mmol/L (98-107); CREATININE, SERUM 0.92 mg/dL (0.72-1.25); EST GLOMERULAR FILTRATION RATE > 60 ML/MIN (60-); GLUCOSE 101 mg/dL (74-118); SODIUM 133 mmol/L (136-145)
[2019-01-07] MEDS: PIPER-TAZ 3.375 GM 50 ML IV SCH ×3 (06:00→21:58)
--- NOTE | 2019-01-07 07:00 | NUR ---
BEDSIDE SHIFT REPORT RECEIVED FROM THE CALCULATOR OPERATOR RN. EDUCATED PT ABOUT FALL PRECAUTIONS. BED IS LOCKED. SIDE RAILS X2. PT REFUSED BED ALARM. CALL LIGHT IS WITH IN EASY REACH. INSTRUCTED PT TO USE CALL LIGHT FOR ANY NEEDS. PT VERBALIZED UNDERSTANDING. PT DENIES NEEDS AT THIS TIME.
[2019-01-07 07:12] LABS: BAND NEUTROPHILS % (MANUAL) 2 %; LYMPHOCYTES % (MANUAL) 16 % (19-48); MONOCYTES % (MANUAL) 6 % (3.4-9.0); NEUTROPHILS % (MANUAL) 76 % (40-74)
[2019-01-07 07:13] LABS: PLATELET ESTIMATE MODERATELY INCREASED; PLATELET MORPHOLOGY COMMENT NORMAL; RBC MORPHOLOGY COMMENT NORMAL
--- NOTE | 2019-01-07 07:22 | NUR ---
REPORT GIVEN TO ONCOMING NURSE.WALKING ROUNDS MADE.PT RESTING IN BED WITH NO S/S OF DISTRESS.
--- NOTE | 2019-01-07 07:22 | NUR ---
REPORT GIVEN TO ONCOMING NURSE.WALKING ROUNDS MADE.PT RESTING IN BED WITH NO S/S OF DISTRESS.
[2019-01-07] MEDS: SODIUM BICARBONATE 650 MG TAB PO SCH ×3 (08:08→21:24)
[2019-01-07] MEDS: PANTOPRAZOLE SOD 40 MG TABEC PO SCH (08:08)
--- NOTE | 2019-01-07 10:01 | Progress Note ---
DATE: 01/07/2019 SUBJECTIVE: Mr. 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 He was found to have pneumonia. He was started on IV antibiotics. PHYSICAL EXAMINATION: GENERAL: Today, he is awake and alert. He is feeling better. VITAL SIGNS: Temperature is 99.6, blood pressure 129/75. HEART: Regular rate. LUNGS: Decreased breath sounds bilaterally. ABDOMEN: Soft. LABORATORY DATA: On the blood work, white count is 8.46, hemoglobin is 9.6, hematocrit is 28.2. Potassium is 4.0, creatinine is 0.92. Urine showed cocaine. Immunoglobulins are pending. The sputum culture showed Klebsiella pneumoniae and Staph aureus. Blood culture is showing Klebsiella pneumoniae. Had an abdominal and pelvic CT done on the that shows worsening airspace consolidation in the left lower lobe. No change in the left upper lobe consolidation. Trace bilateral pleural effusion and hepatomegaly. ASSESSMENT: 1. Left lower lobe pneumonia with Klebsiella and Staph. 2. Sepsis, secondary to Klebsiella pneumoniae. 3. Leukocytosis, improving. 4. Acute renal failure, resolved. 5. Human immunodeficiency virus. 6. Treacher Rinaldi syndrome. 7. Screening positive for cocaine. PLAN: At present time is the antibiotics were switched 2 days ago. He was switched to aztreonam. So, the plan is to continue IV antibiotics. Clinically, he looks better. We will see how he does during this week and discuss with Infectious Disease plan regarding how much longer patient will need the antibiotics. All this was discussed in extension to patient. All questions were answered to satisfaction. MD JACKIE Trotter/MODL /[id number]
[2019-01-07 12:37] LABS: ABG HCO3 27 mmol/L (23-28); ABG PCO2 39 mmHg (41-51); ABG PH 7.44 (7.31-7.41); ABG PO2 85 mmHg (80-105)
[2019-01-07] MEDS: TRIMETHOPRIM/SULFAMETHOXAZOLE 160-800 MG TAB PO SCH ×2 (14:51→21:59)
--- NOTE | 2019-01-07 15:45 | NUR ---
PT OFF UNIT FOR PROCEDURE
--- NOTE | 2019-01-07 16:25 | NUR ---
PT BACK TO UNIT AFTER PROCEDURE. DENIES NEEDS AT THIS TIME.
--- NOTE | 2019-01-07 16:32 | Diagnostic Imaging Report ---
EXAMINATION: CHEST 2 VIEWS INDICATION: Shortness of breath COMPARISON: Chest CT and chest radiographs of 01/04/2019 FINDINGS: LINES/TUBES:None LUNGS:The right lung is well inflated. Unchanged airspace opacities at the lingula and left lower lobe. PLEURA:No pleural effusion or pneumothorax. MEDIASTINUM:The cardiomediastinal silhouette appears unchanged in size and shape. BONES/SOFT TISSUES:No acute osseous injury. ABDOMEN:No free air under the diaphragm. IMPRESSION: No significant interval change in lingular and left lower lobe airspace opacities consistent with pneumonia. Signed by: Paula Sandoval MD on 01/07/2019 4:29 PM
[2019-01-07] MEDS: PREDNISONE 10 MG TAB PO SCH (16:49)
--- NOTE | 2019-01-07 19:00 | NUR ---
BEDSIDE SHIFT REPORT GIVEN TO THE COTTON EXPERT RN. PT DENIED FURTHER NEEDS.
--- NOTE | 2019-01-07 19:17 | NUR ---
Patient received lying in bed. AAO x 4. Patient had no complaints of pain. No signs of respiratory distress. Fall precautions implemented. Patient instructed to call for assistance when needed. Call light within reach.
[2019-01-08] VITALS: BP 124/80
[2019-01-08] MEDS: ALBUTEROL/IPRATROPIUM 3 ML NEB NEB SCH ×2 (01:15→08:09)
[2019-01-08 04:00] VITALS: BP 123/73
[2019-01-08] MEDS: PIPER-TAZ 3.375 GM 50 ML IV SCH ×2 (06:30→14:20)
[2019-01-08] MEDS: TRIMETHOPRIM/SULFAMETHOXAZOLE 160-800 MG TAB PO SCH (06:30)
--- NOTE | 2019-01-08 07:00 | NUR ---
Walking rounds done. Shift report given to oncoming nurse.
--- NOTE | 2019-01-08 07:17 | NUR ---
BEDSIDE SHIFT REPORT RECEIVED FROM THE BOND ANALYST RN. EDUCATED PT ABOUT FALL PRECAUTIONS. BED IS LOCKED. CALL LIGHT IS WITH IN EASY REACH. INSTRUCTED PT TO USE CALL LIGHT FOR ANY NEEDS. PT VERBALIZED UNDERSTANDING. PT DENIES NEEDS AT THIS TIME.
[2019-01-08 07:22] VITALS: BP 123/72
[2019-01-08 07:35] VITALS: BP 123/72
[2019-01-08] MEDS: PANTOPRAZOLE SOD 40 MG TABEC PO SCH (08:09)
[2019-01-08] MEDS: PREDNISONE 10 MG TAB PO SCH ×2 (08:09→16:39)
[2019-01-08] MEDS: SODIUM BICARBONATE 650 MG TAB PO SCH ×2 (08:10→14:20)
--- NOTE | 2019-01-08 10:55 | Progress Note ---
DATE: 01/08/2019 SUBJECTIVE: Mr. Duron is a 28-year-old man with history of Treacher Rinaldi syndrome, HIV, came to the emergency room complaining of left-sided chest pain, cough, phlegm, and fever. He was found to have pneumonia. The sputum culture grew Staph and Klebsiella pneumoniae and he is on IV antibiotics. PHYSICAL EXAMINATION: GENERAL: Today, he is awake and alert. VITAL SIGNS: Today, temperature is 96.8, blood pressure is 123/72. HEART: Regular rate. LUNGS: Decreased breath sounds. ABDOMEN: Soft. LABORATORY DATA: On the blood work, white count is 8.46, hemoglobin is 9.6, hematocrit is 28.2. Potassium 4.0, creatinine is 0.92, glucose is 101. Toxicology show cocaine and CD4 is pending. Sputum culture positive for Klebsiella pneumoniae and Staph. The blood culture showing Klebsiella pneumonia. Chest x-ray done yesterday showed no significant interval change in the lingular and left lower lobe airspace opacities consistent with pneumonia. ASSESSMENT AND PLAN: On this patient is: 1. Left lower lobe pneumonia with sputum positive for Klebsiella and Staph. 2. Sepsis secondary to Klebsiella pneumoniae. 3. Leukocytosis, improving. 4. Acute renal failure, resolved. 5. Treacher Rinaldi syndrome. 6. Human immunodeficiency virus, positive. 7. Urine screening came back positive for cocaine. The plan at present time is to continue IV antibiotics, had a chest x-ray done yesterday that did not show much improvement on the infiltrate. Infectious Disease and Pulmonary are following the patient with me. All this was discussed with the patient. All questions were answered to satisfaction. We are going to continue present treatment. MD JACKIE Trotter/MODL /[id number]
[2019-01-08 11:14] VITALS: BP 107/61
[2019-01-08] MEDS ORDERED: VANCOMYCIN 1GM/NS 250 ML 250 ML IV SCH (11:30)
[2019-01-08 15:08] VITALS: BP 120/65
--- NOTE | 2019-01-08 16:00 | NUR ---
CHUCKY TO D/C PT PER DR. LEARY
--- NOTE | 2019-01-08 16:11 | NUR ---
Spoke to Dr. Weiner, who states pt can discharge home with oral abx. He left script on chart. ОЛЬГА Mcnair is aware.
[2019-01-08] MEDS ORDERED: CIPRO500 MG PO (16:12)
[2019-01-08] MEDS ORDERED: DOXYCYCLINE HY100 MG PO (16:12)
[2019-01-08] MEDS ORDERED: BACTRIM DS TAB1 EACH PO (16:14)
--- NOTE | 2019-01-08 17:00 | NUR ---
CHUCKY TO D/C PT PER DR. MUÑOZ. PAGED DR. LEACH OFFICE AND INFORMED THE SAME. WAITING FOR CALL BACK FROM DR. LEACH
--- NOTE | 2019-01-08 18:00 | NUR ---
CALL BACK FROM DR. LEACH. FOLLOW UP WITH DR. LEACH AND ID IN 1-2 WEEKS. INFORMED THE SAME TO THE PT. PT VERBALIZED UNDERSTANDING. OKAY TO D/C PT.
--- NOTE | 2019-01-08 18:45 | NUR ---
PT DISCHARGED HOME SAFELY WITH FAMILY. PT ESCORTED VIA WHEEL CHAIR TO THE FRONT ENTRANCE. IV REMOVED. TIP INTACT. NO BLEEDING NOTED. DRESSING APPLIED. PT DENIED FURTHER NEEDS.
--- NOTE | 2019-01-08 19:56 | Progress Note ---
DATE: SUBJECTIVE: Mr. Duron is doing well. There is no new complaint. REVIEW OF SYSTEMS: Negative. PHYSICAL EXAMINATION: GENERAL: Alert, oriented. Does not seem to be in acute distress. VITAL SIGNS: Stable. Afebrile. HEENT: Not icteric. NECK: Supple. CHEST: Few rhonchi in left. HEART: S1 and S2. No murmur. ABDOMEN: Soft. Bowel sounds present. No tenderness. EXTREMITIES: No edema. IMPRESSION: 1. Pneumonia. Can be discharged home with doxycycline 100 mg p.o. b.i.d. for two weeks, Cipro 500 mg p.o. b.i.d. for 2 weeks. 2. Human immunodeficiency virus. To visit with his HIV physician in [facility]. We will put him on Bactrim prophylaxis and CD4 cell count. To continue his home medication. MD RADHA Kenney/FATUMA /[id number]
== END 2019-01-08 18:55 | disposition home or self-care (01) | DRG 975 ==
LOC: ER 05:35 → ERHOLD 07:00 → MED/SURG2 13:18
PROVIDERS: ADMIT Internal Medicine; ATTEND Internal Medicine
DX: A41.89 Other specified sepsis (principal); B20 Human immunodeficiency virus [HIV] disease; N17.9 Acute kidney failure, unspecified; J15.0 Pneumonia due to Klebsiella pneumoniae; J15.211 Pneumonia due to Methicillin susceptible Staphylococcus aureus; E87.1 Hypo-osmolality and hyponatremia; E44.1 Mild protein-calorie malnutrition; Z68.1 Body mass index [BMI] 19.9 or less, adult; R65.20 Severe sepsis without septic shock; E86.0 Dehydration; E87.6 Hypokalemia; E83.42 Hypomagnesemia; R09.1 Pleurisy; Q75.4 Mandibulofacial dysostosis; F14.10 Cocaine abuse, uncomplicated; B96.1 Klebsiella pneumoniae [K. pneumoniae] as the cause of diseases classified elsewhere; B95.61 Methicillin susceptible Staphylococcus aureus infection as the cause of diseases classified elsewhere; B96.89 Other specified bacterial agents as the cause of diseases classified elsewhere; N18.3 Chronic kidney disease, stage 3 (moderate); D63.1 Anemia in chronic kidney disease
CPT/HCPCS: 36415; 36600; 71045; 71046; 71260; 74177; 76770; 80048; 80053; 80307; 81001; 82550; 82553; 82570; 82805; 83605; 83735; 84100; 84156; 84484; 85025; 85610; 85730; 86361; 87040; 87070; 87071; 87086; 87186; 87205; 93005; 94640; 96374; 96375; 99285; J0456; J0690; J0692; J0696; J2405; J2543; J3370; J3475; J7030; J7512; Q9967

== ENCOUNTER 2020-10-23 12:55 | Emergency (ER) | payer SELFPAY ==
[~2020-10-23] VITALS: Ht 170.2 cm; Wt 52.6 kg
[~2020-10-23 12:55] MED LIST: BACTRIM DS TAB1 EACH PO; CIPRO500 MG PO; DOXYCYCLINE HY100 MG PO; biktarvy
[2020-10-23] MEDS ORDERED: SODIUM CHLORIDE 0.9% 1000ML 1,000 ML IV STA (13:25)
[2020-10-23] MEDS ORDERED: CEFEPIME 1 GM in SODIUM CHLORIDE 0.9% 50ML 50 ML IV STA (13:25)
[2020-10-23] MEDS ORDERED: Vancomycin IV 1 GM in SODIUM CHLORIDE 0.9% 250ML 250 ML IV STA (13:25)
[2020-10-23 13:58] LABS: BASOPHILS # (AUTO) 0.1 (0.0-0.1); EOSINOPHILS % 0.4 % (0.0-6.0); HEMOGLOBIN 10.1 g/dL (14.0-18.0); LYMPHOCYTES # (AUTO) 2.9 (1.0-3.2); LYMPHOCYTES % 39.5 % (18.0-39.1); MEAN CORPUSCULAR HEMOGLOBIN 30.8 pg (28-32); MEAN CORPUSCULAR HGB CONC 32.6 g/dL (31-35); MEAN CORPUSCULAR VOLUME 94.5 fL (81-99); MONOCYTES # (AUTO) 0.9 (0.2-0.8); MONOCYTES % 12.3 % (4.4-11.3); NEUTROPHILS # (AUTO) 3.3 (2.1-6.9); NEUTROPHILS % 46.2 % (38.7-80.0); PLATELET COUNT 279 x10e3/uL (140-360); RED BLOOD COUNT 3.28 x10e6/uL (4.3-5.7); RED CELL DISTRIBUTION WIDTH 13.3 % (11.7-14.4)
[2020-10-23] MEDS ORDERED: IOPAMIDOL 370 MG/ML 200 ML INFUS..BTL INJ ONE (14:11)
[2020-10-23] MEDS ORDERED: SODIUM CHLORIDE 0.9% 50ML 50 ML ONE (14:11)
[2020-10-23 14:25] LABS: ALBUMIN 2.5 g/dL (3.5-5.0); ALBUMIN/GLOBULIN RATIO 0.3 (0.8-2.0); ANION GAP 10.8 mmol/L (8-16); CREATININE, SERUM 1.45 mg/dL (0.72-1.25); POTASSIUM 3.8 mmol/L (3.5-5.1)
[2020-10-23] MEDS ORDERED: AUGMENTIN 875-1 EACH PO (16:18)
[2020-10-23 18:04] LABS: LYMPHOCYTES % (MANUAL) 36 % (19-48); MONOCYTES % (MANUAL) 7 % (3.4-9.0); NEUTROPHILS % (MANUAL) 55 % (40-74); PLATELET ESTIMATE ADEQUATE; PLATELET MORPHOLOGY COMMENT NORMAL; RBC MORPHOLOGY COMMENT NORMAL
[2020-10-23 18:40] VITALS: BP 121/79
== END 2020-10-23 18:50 | disposition home or self-care (01) ==
LOC: ER 13:10
DX: A09 Infectious gastroenteritis and colitis, unspecified (principal); R10.9 Unspecified abdominal pain; B20 Human immunodeficiency virus [HIV] disease; Q75.4 Mandibulofacial dysostosis
CPT/HCPCS: 36415; 74177; 80053; 83690; 85025; 99284; J0692; J3370; J7030; J7050; Q9967

== ENCOUNTER 2021-03-04 15:54 | Inpatient (IN) | payer SELFPAY ==
[~2021-03-04] VITALS: Ht 170.2 cm; Wt 52.6 kg
[~2021-03-04 15:54] MED LIST changes: +AUGMENTIN 875-1 EACH PO
[2021-03-04] MEDS ORDERED: SODIUM CHLORIDE 0.9% 1000ML 1,000 ML IV ONE (18:00)
[2021-03-04 18:08] LABS: BASOPHILS # (AUTO) 0.1 (0.0-0.1); BASOPHILS % 0.4 % (0.0-1.0); HEMATOCRIT 30.8 % (38.2-49.6); HEMOGLOBIN 9.8 g/dL (14.0-18.0); LYMPHOCYTES # (AUTO) 2.2 (1.0-3.2); LYMPHOCYTES % 15.3 % (18.0-39.1); MEAN CORPUSCULAR HEMOGLOBIN 30.5 pg (28-32); MEAN CORPUSCULAR HGB CONC 31.8 g/dL (31-35); MONOCYTES % 7.2 % (4.4-11.3); NEUTROPHILS % 76.2 % (38.7-80.0); PLATELET COUNT 292 x10e3/uL (140-360); RED BLOOD COUNT 3.21 x10e6/uL (4.3-5.7); RED CELL DISTRIBUTION WIDTH 13.2 % (11.7-14.4)
[2021-03-04] MEDS ORDERED: IBUPROFEN 600 MG TAB PO STA (18:08)
[2021-03-04 18:29] LABS: ALBUMIN 2.4 g/dL (3.5-5.0); ALBUMIN/GLOBULIN RATIO 0.3 (0.8-2.0); ANION GAP 9.5 mmol/L (8-16); CALCIUM 7.8 mg/dL (8.4-10.2); CREATININE, SERUM 1.7 mg/dL (0.72-1.25); POTASSIUM 3.5 mmol/L (3.5-5.1)
[2021-03-04 18:31] LABS: CLARITY,URINE SL CLOUDY (CLEAR); COLOR,URINE AMBER (YELLOW); KETONES,URINE TRACE (NEGATIVE); LEUKOCYTE ESTERASE ,URINE NEGATIVE (NEGATIVE); NITRITE,URINE NEGATIVE (NEGATIVE); PROTEIN,URINE DIPSTICK >=300 (NEGATIVE); URINE UROBILINOGEN 0.2 mg/dL (0.2 - 1)
[2021-03-04] MEDS ORDERED: IOPAMIDOL 370 MG/ML 200 ML INFUS..BTL INJ ONE (18:47)
[2021-03-04] MEDS ORDERED: SODIUM CHLORIDE 0.9% 50ML 50 ML ONE (18:47)
[2021-03-04 18:52] LABS: BACTERIA,URINE MODERATE /HPF; WBC,URINE (MAN) 0-5 /HPF (0-5)
[2021-03-04 20:41] LABS: LYMPHOCYTES % (MANUAL) 16 % (19-48); MONOCYTES % (MANUAL) 7 % (3.4-9.0); NEUTROPHILS % (MANUAL) 77 % (40-74); PLATELET ESTIMATE ADEQUATE; PLATELET MORPHOLOGY COMMENT FEW LARGE; RBC MORPHOLOGY COMMENT NORMAL
[2021-03-04] MEDS ORDERED: Morphine 4mg Syringe 4 MG/ML INJ IV PRN (20:45)
[2021-03-04] MEDS ORDERED: ONDANSETRON HCL INJ 2MG/ML 2ML 2 MG/ML VIAL IV PRN (20:45)
[2021-03-04] MEDS: SODIUM CHLORIDE 0.9% 1000ML 1,000 ML IV SCH (20:50)
[2021-03-04 22:10] VITALS: BP 102/73
[2021-03-05] VITALS (7 sets, daily range): BP systolic 100–108; BP diastolic 60–69
[2021-03-05] MEDS ORDERED: TRIUMEQ 600-501 EACH PO (01:10)
[2021-03-05 04:49] LABS: BASOPHILS # (AUTO) 0.1 (0.0-0.1); BASOPHILS % 0.3 % (0.0-1.0); EOSINOPHILS % 0.1 % (0.0-6.0); HEMATOCRIT 27.6 % (38.2-49.6); HEMOGLOBIN 9.3 g/dL (14.0-18.0); LYMPHOCYTES # (AUTO) 1.9 (1.0-3.2); LYMPHOCYTES % 10.6 % (18.0-39.1); MEAN CORPUSCULAR HEMOGLOBIN 31.2 pg (28-32); MEAN CORPUSCULAR HGB CONC 33.7 g/dL (31-35); MEAN CORPUSCULAR VOLUME 92.6 fL (81-99); MONOCYTES # (AUTO) 0.8 (0.2-0.8); MONOCYTES % 4.4 % (4.4-11.3); NEUTROPHILS # (AUTO) 15.1 (2.1-6.9); NEUTROPHILS % 83.7 % (38.7-80.0); PLATELET COUNT 290 x10e3/uL (140-360); RED BLOOD COUNT 2.98 x10e6/uL (4.3-5.7); RED CELL DISTRIBUTION WIDTH 13.2 % (11.7-14.4)
[2021-03-05 05:27] LABS: ALBUMIN 1.9 g/dL (3.5-5.0); ALBUMIN/GLOBULIN RATIO 0.2 (0.8-2.0); ANION GAP 9.4 mmol/L (8-16); CALCIUM 7.1 mg/dL (8.4-10.2); CREATININE, SERUM 1.4 mg/dL (0.72-1.25); POTASSIUM 3.4 mmol/L (3.5-5.1)
[2021-03-05 07:23] LABS: LYMPHOCYTES % (MANUAL) 9 % (19-48); MONOCYTES % (MANUAL) 3 % (3.4-9.0); NEUTROPHILS % (MANUAL) 88 % (40-74); PLATELET ESTIMATE ADEQUATE
[2021-03-05 07:24] LABS: PLATELET MORPHOLOGY COMMENT NORMAL
[2021-03-05 07:26] LABS: RBC MORPHOLOGY COMMENT NORMAL
[2021-03-05] MEDS: SODIUM CHLORIDE 0.9% 1000ML 1,000 ML IV SCH ×3 (10:00→21:25)
[2021-03-05] MEDS ORDERED: VANCOMYCIN 250MG/5ML ORAL SOLN PO SCH (12:00)
[2021-03-05] MEDS: METRONIDAZOLE 500 MG TAB PO SCH ×2 (13:07→22:00)
[2021-03-05] MEDS ORDERED: METRONIDAZOLE 500MG/NS 100ML 100 ML IV SCH (14:00)
[2021-03-05] MEDS: ACETAMINOPHEN 325 MG TAB PO PRN (15:50)
[2021-03-05] MEDS: CEFEPIME 1 GM in SODIUM CHLORIDE 0.9% 50ML 50 ML IV SCH (21:25)
[2021-03-05 23:51] LABS: % IRON SATURATION 9 % (15-50); IRON 17 ug/dL (65-175); TOTAL IRON BINDING CAPACITY 190 ug/dL (261-478); TRANSFERRIN 136 mg/dL (174-364)
[2021-03-06] VITALS (8 sets, daily range): BP systolic 92–137; BP diastolic 58–94
[2021-03-06] MEDS: ACETAMINOPHEN 325 MG TAB PO PRN (00:46)
[2021-03-06] MEDS ORDERED: DICYCLOMINE HCL 20 MG TAB PO STA (02:46)
[2021-03-06 04:58] LABS: BASOPHILS # (AUTO) 0.1 (0.0-0.1); BASOPHILS % 0.3 % (0.0-1.0); EOSINOPHILS % 0.2 % (0.0-6.0); HEMATOCRIT 26.1 % (38.2-49.6); HEMOGLOBIN 8.6 g/dL (14.0-18.0); LYMPHOCYTES # (AUTO) 0.9 (1.0-3.2); LYMPHOCYTES % 5.7 % (18.0-39.1); MEAN CORPUSCULAR HEMOGLOBIN 30.7 pg (28-32); MEAN CORPUSCULAR VOLUME 93.2 fL (81-99); MONOCYTES # (AUTO) 0.8 (0.2-0.8); MONOCYTES % 5.5 % (4.4-11.3); NEUTROPHILS # (AUTO) 12.9 (2.1-6.9); NEUTROPHILS % 86.9 % (38.7-80.0); PLATELET COUNT 274 x10e3/uL (140-360); RED CELL DISTRIBUTION WIDTH 13.2 % (11.7-14.4)
[2021-03-06 05:20] LABS: ALBUMIN 1.7 g/dL (3.5-5.0); ALBUMIN/GLOBULIN RATIO 0.2 (0.8-2.0); ANION GAP 7.4 mmol/L (8-16); CALCIUM 7.4 mg/dL (8.4-10.2); CREATININE, SERUM 1.24 mg/dL (0.72-1.25); POTASSIUM 3.4 mmol/L (3.5-5.1)
[2021-03-06] MEDS: METRONIDAZOLE 500 MG TAB PO SCH ×3 (05:36→17:21)
[2021-03-06] MEDS: SODIUM CHLORIDE 0.9% 1000ML 1,000 ML IV SCH ×2 (05:36→12:45)
[2021-03-06] MEDS: IRON SUCROSE 100 MG in SODIUM CHLORIDE 0.9% 100 ML 100 ML IV SCH (09:00)
[2021-03-06] MEDS: CYANOCOBALAMIN INJ 1,000 MCG/ML VIAL IM SCH (09:00)
[2021-03-06] MEDS: CEFEPIME 1 GM in SODIUM CHLORIDE 0.9% 50ML 50 ML IV SCH ×2 (09:00→20:28)
[2021-03-06] MEDS: FOLIC ACID 1 MG TAB PO SCH (09:00)
[2021-03-06] MEDS: DICYCLOMINE HCL 10 MG CAP PO SCH ×4 (09:00→20:28)
[2021-03-06] MEDS ORDERED: LACTATED RINGER'S 1,000 ML INJ ONE (14:00)
[2021-03-07] VITALS: BP 99/57
[2021-03-07] MEDS: METRONIDAZOLE 500 MG TAB PO SCH ×4 (00:13→17:21)
[2021-03-07] MEDS: ACETAMINOPHEN 325 MG TAB PO PRN (02:13)
[2021-03-07 04:15] VITALS: BP 100/62
[2021-03-07 06:45] LABS: BASOPHILS % 0.4 % (0.0-1.0); EOSINOPHILS % 0.3 % (0.0-6.0); HEMATOCRIT 23.9 % (38.2-49.6); LYMPHOCYTES # (AUTO) 0.8 (1.0-3.2); LYMPHOCYTES % 10.1 % (18.0-39.1); MEAN CORPUSCULAR HEMOGLOBIN 30.5 pg (28-32); MEAN CORPUSCULAR HGB CONC 33.5 g/dL (31-35); MEAN CORPUSCULAR VOLUME 91.2 fL (81-99); MONOCYTES # (AUTO) 0.5 (0.2-0.8); NEUTROPHILS # (AUTO) 6.3 (2.1-6.9); PLATELET COUNT 261 x10e3/uL (140-360); RED BLOOD COUNT 2.62 x10e6/uL (4.3-5.7)
[2021-03-07 07:09] LABS: ANION GAP 9.5 mmol/L (8-16); CALCIUM 7.6 mg/dL (8.4-10.2); CREATININE, SERUM 1.12 mg/dL (0.72-1.25); POTASSIUM 3.5 mmol/L (3.5-5.1)
[2021-03-07 07:56] LABS: LYMPHOCYTES % (MANUAL) 9 % (19-48); MONOCYTES % (MANUAL) 8 % (3.4-9.0); NEUTROPHILS % (MANUAL) 83 % (40-74)
[2021-03-07 07:57] LABS: PLATELET ESTIMATE ADEQUATE; PLATELET MORPHOLOGY COMMENT NORMAL; RBC MORPHOLOGY COMMENT NORMAL
[2021-03-07 08:00] VITALS: BP 100/62
[2021-03-07] MEDS ORDERED: CHOLESTYRAMINE 4 GM PACKET PO SCH (08:00)
[2021-03-07] MEDS: CYANOCOBALAMIN INJ 1,000 MCG/ML VIAL IM SCH (09:00)
[2021-03-07] MEDS: DICYCLOMINE HCL 20 MG TAB PO SCH ×3 (09:00→17:21)
[2021-03-07] MEDS: CEFEPIME 1 GM in SODIUM CHLORIDE 0.9% 50ML 50 ML IV SCH (09:00)
[2021-03-07] MEDS: FOLIC ACID 1 MG TAB PO SCH (09:00)
[2021-03-07] MEDS: IRON SUCROSE 100 MG in SODIUM CHLORIDE 0.9% 100 ML 100 ML IV SCH (09:00)
[2021-03-07 09:44] VITALS: BP 107/70
[2021-03-07 13:06] VITALS: BP 101/71
[2021-03-07] MEDS ORDERED: FLAGYL375 MG PO (16:12)
[2021-03-07] MEDS ORDERED: CIPRO250 MG PO (16:13)
[2021-03-07 16:26] VITALS: BP 108/70
== END 2021-03-07 17:44 | disposition home or self-care (01) | DRG 975 ==
LOC: ER 16:17 → ERHOLD 20:31 → MED/SURG2 22:03 → OBSVTOIN 03-05 11:19
PROVIDERS: ADMIT Internal Medicine; ATTEND Internal Medicine
DX: J18.9 Pneumonia, unspecified organism (principal); B20 Human immunodeficiency virus [HIV] disease; N17.9 Acute kidney failure, unspecified; A04.9 Bacterial intestinal infection, unspecified; E87.2 Acidosis; E86.0 Dehydration; D64.9 Anemia, unspecified
CPT/HCPCS: 36415; 71045; 74177; 80048; 80053; 81001; 82607; 82746; 82948; 83540; 83605; 83690; 84466; 85025; 85045; 87040; 87045; 87400; 87493; 94799; 99284; G0378; J0692; J1756; J3420; J7030; J7121; Q9967; U0002

== ENCOUNTER 2021-04-12 22:48 | Emergency (ER) | payer SELFPAY ==
[~2021-04-12] VITALS: Ht 170.2 cm; Wt 52.6 kg
[~2021-04-12 22:48] MED LIST changes: +CIPRO250 MG PO; +FLAGYL375 MG PO; +TRIUMEQ 600-501 EACH PO
[2021-04-12] MEDS ORDERED: ACETAMINOPHEN 325 MG TAB PO ONE (23:15)
[2021-04-12] MEDS ORDERED: ONDANSETRON HCL 4 MG ORAL DISINTEGRATING TAB PO ONE (23:15)
[2021-04-12] MEDS ORDERED: ONDANSETRON HCL 4 MG ORAL DISINTEGRATING TAB ONE (23:25)
[2021-04-13] MEDS ORDERED: BROMFED DM COU118 ML PO (00:46)
[2021-04-13] MEDS ORDERED: IBUPROFEN600 MG PO (00:46)
== END 2021-04-13 00:54 | disposition home or self-care (01) ==
LOC: ER 23:15
DX: J06.9 Acute upper respiratory infection, unspecified (principal); R50.9 Fever, unspecified; R05.9 Cough, unspecified; R11.2 Nausea with vomiting, unspecified; B20 Human immunodeficiency virus [HIV] disease; Q75.4 Mandibulofacial dysostosis
CPT/HCPCS: 99283; Q0162